=== PATIENT | male | born 1980 ===

== ENCOUNTER 2023-08-06 09:55 | Day surgery (SDC) | payer BC ==
[~2023-08-06 09:55] MED LIST: Lactated Ringers 1,000 ML IV SCH
[2023-08-06] MEDS ORDERED: Propofol 200 MG/20 ML SDV ONE ×2 (11:54→12:15)
[2023-08-06] MEDS ORDERED: Lidocaine 2% 5 ML SDV ONE (11:54)
== END 2023-08-06 13:33 | disposition home or self-care (01) ==
LOC: MW.SDS 09:55
PROVIDERS: ATTEND Surgery
DX: D64.9 Anemia, unspecified (principal); E78.00 Pure hypercholesterolemia, unspecified; E66.9 Obesity, unspecified; Z68.25 Body mass index [BMI] 25.0-25.9, adult; Z87.891 Personal history of nicotine dependence; Z79.899 Other long term (current) drug therapy; Z88.1 Allergy status to other antibiotic agents
CPT/HCPCS: 43239; 45378; J2704; J7120; 00813; J3490